=== PATIENT | female | born 1955 | race Hispanic/Latino ===

== ENCOUNTER 2025-04-01 16:10 | Emergency (ER) | payer BC ==
[~2025-04-01] VITALS: Ht 165.1 cm; Wt 61.2 kg
[~2025-04-01 16:10] MED LIST: Z.0.ARAVA10 MG PO; Z.0.CELEBREX200 MG PO; Z.0.PLAQUENIL200 MG PO
[2025-04-01 16:15] VITALS: PULSE 73; RESP 16; TEMP 98.4; O2SAT 100
[2025-04-01] MEDS ORDERED: CEPHALEXIN500 MG PO (16:30)
== END 2025-04-01 17:04 | disposition home or self-care (01) ==
LOC: ER 16:20
DX: S51.812A Laceration without foreign body of left forearm, initial encounter (principal); W01.0XXA Fall on same level from slipping, tripping and stumbling without subsequent striking against object, initial encounter; Y92.89 Other specified places as the place of occurrence of the external cause; M06.9 Rheumatoid arthritis, unspecified
CPT/HCPCS: 99283